=== PATIENT | male | born 1940 ===

== ENCOUNTER 2018-10-09 07:48 | Day surgery (SDC) | payer MEDICARE, OTHER ==
[~2018-10-09] VITALS: Ht 177.8 cm; Wt 98.5 kg
[~2018-10-09 07:48] MED LIST: ACET325; ASPI325; CEPH500 PO
--- NOTE | 2018-10-09 10:28 | NUR ---
10/09/18 1028 Sherley Liriano IV DISCONTINUED BY [email or web address]
== END 2018-10-09 10:10 | disposition home or self-care (01) ==
LOC: ORSCSDS 07:48
PROVIDERS: Internal Medicine Gastroenterology
PROC: 0DBK8ZX Excision of Ascending Colon, Via Natural or Artificial Opening Endoscopic, Diagnostic (ICD-10-PCS; principal; 2018-10-09 09:00)
PROC: 0DBL8ZX Excision of Transverse Colon, Via Natural or Artificial Opening Endoscopic, Diagnostic (ICD-10-PCS; principal; 2018-10-09 09:00)
PROC: 0DBM8ZX Excision of Descending Colon, Via Natural or Artificial Opening Endoscopic, Diagnostic (ICD-10-PCS; principal; 2018-10-09 09:00)
DX: Z12.11 Encounter for screening for malignant neoplasm of colon (principal); Z86.010 Personal history of colon polyps; D12.2 Benign neoplasm of ascending colon; D12.3 Benign neoplasm of transverse colon; D12.4 Benign neoplasm of descending colon; D12.5 Benign neoplasm of sigmoid colon; K57.30 Diverticulosis of large intestine without perforation or abscess without bleeding; Z87.891 Personal history of nicotine dependence; Z79.899 Other long term (current) drug therapy; Z79.82 Long term (current) use of aspirin
CPT/HCPCS: 88305; J0461; J2405; J2704; J7120

== ENCOUNTER 2020-12-03 18:16 | Emergency (ER) | payer MEDICARE, OTHER ==
[~2020-12-03] VITALS: Ht 177.8 cm; Wt 72.6 kg
[2020-12-03] MEDS ORDERED: TAMS.4ER PO (18:31)
== END 2020-12-03 18:38 | disposition home or self-care (01) ==
LOC: ER 18:16
DX: L23.7 Allergic contact dermatitis due to plants, except food (principal); Z79.82 Long term (current) use of aspirin; Z87.891 Personal history of nicotine dependence
CPT/HCPCS: 96372; 99282-25; J3301

== ENCOUNTER 2023-11-07 07:50 | Day surgery (SDC) | payer MEDICARE, OTHER ==
[~2023-11-07] VITALS: Ht 177.8 cm; Wt 90.8 kg
[~2023-11-07 07:50] MED LIST changes: +CODACE30; +Lactated Ringer's 1,000 ML IV ONE; +TAMS.4ER PO; +propofoL 50 ML IV ONE
[2023-11-07] MEDS ORDERED: FLONASE SENSIM5.9 M1 (09:02)
[2023-11-07 09:31] VITALS: BP 137/79
[2023-11-07] MEDS ORDERED: Lactated Ringer's 1,000 ML IV ONE (09:50)
== END 2023-11-07 11:00 | disposition home or self-care (01) ==
LOC: ORSCSDS 07:50
PROVIDERS: Internal Medicine Gastroenterology
PROC: 0DBP8ZX Excision of Rectum, Via Natural or Artificial Opening Endoscopic, Diagnostic (ICD-10-PCS; principal; 2023-11-07 09:45)
PROC: 0DBK8ZX Excision of Ascending Colon, Via Natural or Artificial Opening Endoscopic, Diagnostic (ICD-10-PCS; principal; 2023-11-07 09:45)
DX: Z12.11 Encounter for screening for malignant neoplasm of colon (principal); D12.2 Benign neoplasm of ascending colon; K62.1 Rectal polyp; Z86.010 Personal history of colon polyps; Z87.891 Personal history of nicotine dependence
CPT/HCPCS: 88305; J2704; J7120

== ENCOUNTER 2024-01-15 07:52 | Day surgery (SDC) | payer MEDICARE, OTHER ==
[~2024-01-15] VITALS: Ht 177.8 cm; Wt 92.5 kg
[~2024-01-15 07:52] MED LIST changes: +Balanced Salt Epinephrine Irrigation Solution 500 mL IR SCH; +FLONASE SENSIM5.9 M1; -Lactated Ringer's 1,000 ML IV ONE; +Lidocaine HCl/Pf 1% 5 ML VIAL XX SCH; +Moxifloxacin HCL 0.5 MG/0.1 ML 0.4MLSYR LEFTEYE SCH; +NS 500 ML IV ONE; +PHENYLEPHRINE\\TROPICAMIDE\\TETRACAINE OPHTHALMIC DILATING SOLN LEFTEYE PRN; +Povidone-Iodine 450 DROP/30 ML Solution LEFTEYE SCH; +Povidone-Iodine 450 DROP/30 ML Solution ONE; +Tetracaine HCl/Pf 0.5% Opth Soln 4 ml ONE; -propofoL 50 ML IV ONE
[2024-01-15] MEDS ORDERED: ACET325 PO (08:38)
[2024-01-15] MEDS ORDERED: Midazolam HCl 1MG / ML 2ML Vial ONE (09:20)
[2024-01-15 10:00] VITALS: BP 112/66
== END 2024-01-15 10:20 | disposition home or self-care (01) ==
LOC: ORSCSDS 07:52
PROVIDERS: Student in an Organized Health Care Education/Training Program
PROC: 08RK3JZ Replacement of Left Lens with Synthetic Substitute, Percutaneous Approach (ICD-10-PCS; principal; 2024-01-15 09:30)
DX: H25.813 Combined forms of age-related cataract, bilateral (principal); H35.30 Unspecified macular degeneration; J44.9 Chronic obstructive pulmonary disease, unspecified; Z79.899 Other long term (current) drug therapy
CPT/HCPCS: J2250; J7040; V2632

== ENCOUNTER 2024-01-19 13:52 | Emergency (ER) | payer MEDICARE, OTHER ==
[~2024-01-19] VITALS: Ht 177.8 cm; Wt 92.1 kg
[~2024-01-19 13:52] MED LIST changes: +ACET325 PO; -Balanced Salt Epinephrine Irrigation Solution 500 mL IR SCH; -Lidocaine HCl/Pf 1% 5 ML VIAL XX SCH; -Moxifloxacin HCL 0.5 MG/0.1 ML 0.4MLSYR LEFTEYE SCH; -NS 500 ML IV ONE; -PHENYLEPHRINE\\TROPICAMIDE\\TETRACAINE OPHTHALMIC DILATING SOLN LEFTEYE PRN; -Povidone-Iodine 450 DROP/30 ML Solution LEFTEYE SCH; -Povidone-Iodine 450 DROP/30 ML Solution ONE; -Tetracaine HCl/Pf 0.5% Opth Soln 4 ml ONE
[2024-01-19] MEDS ORDERED: Diphth,Pertuss(Acell),Tet Vac 0.5 ML VIAL IM ONE (14:00)
[2024-01-19 15:22] LABS: BASOPHILS ABSOLUTE AUTO 0.04 K/mm3 (0.00-0.23); BASOPHILS PERCENT AUTO 1 % (0-2); EOSINOPHILS ABSOLUTE AUTO 0.21 K/mm3 (0.00-0.68); EOSINOPHILS PERCENT AUTO 4 % (0-6); Hematocrit 40.2 % (37.0-53.0); Hemoglobin 13.8 g/dL (13.5-17.5); IMMATURE GRAN ABSOLUTE AUTO 0.02 K/mm3 (0.00-0.10); IMMATURE GRAN PERCENT AUTO 0 % (0-1); LYMPHOCYTES ABSOLUTE AUTO 1.39 K/mm3 (0.84-5.20); LYMPHOCYTES PERCENT AUTO 27 % (21-46); MONOCYTES ABSOLUTE AUTO 0.43 K/mm3 (0.16-1.47); MONOCYTES PERCENT AUTO 8 % (4-13); Mean Corpuscular HGB 33.7 pg (26.0-34.0); Mean Corpuscular HGB Conc 34.3 g/dL (31.5-36.5); Mean Corpuscular Volume 98 fL (80-100); Mean Platelet Volume 9.7 fL (9.1-12.4); NEUTROPHILS ABSOLUTE AUTO 3.14 K/mm3 (1.96-9.15); NEUTROPHILS PERCENT AUTO 60 % (41-73); Platelet Count 166 K/mm3 (150-400); RDW Coefficient Variation 12.5 % (11.7-14.2); RDW Standard Deviation 45.2 fL (35.1-46.3); Red Blood Cell Count 4.09 M/mm3 (4.30-5.90); White Blood Cell Count 5.23 K/mm3 (4.00-11.30)
[2024-01-19 15:43] LABS: Albumin, Blood 3.9 g/dL (3.4-5.0); Albumin/Globulin Ratio 1.2 (0.8-1.8); Bun/Creatinine Ratio 23.3 (12.0-20.0); Calcium, Blood 9.5 mg/dL (8.5-10.1); Creatinine, Blood 0.9 mg/dL (0.60-1.20); Globulin, Blood 3.2 g/dL (2.2-4.0); Total Protein, Blood 7.1 g/dL (6.4-8.2)
[2024-01-19 16:36] VITALS: BP 146/91
== END 2024-01-19 16:38 | disposition home or self-care (01) ==
LOC: ER 13:52
PROVIDERS: Physician Assistant
DX: S00.03XA Contusion of scalp, initial encounter (principal); S40.812A Abrasion of left upper arm, initial encounter; M54.2 Cervicalgia; W18.30XA Fall on same level, unspecified, initial encounter; Z79.899 Other long term (current) drug therapy; Z87.891 Personal history of nicotine dependence
CPT/HCPCS: 70450; 72125; 80053; 83735; 83880; 85025; 93005; 93010; 99284-25

== ENCOUNTER 2024-01-22 07:33 | Day surgery (SDC) | payer MEDICARE, OTHER ==
[~2024-01-22] VITALS: Ht 177.8 cm; Wt 91.8 kg
[~2024-01-22 07:33] MED LIST changes: +Balanced Salt Epinephrine Irrigation Solution 500 mL IR SCH; +Lidocaine HCl/Pf 1% 5 ML VIAL XX SCH; +Moxifloxacin HCL 0.5 MG/0.1 ML 0.4MLSYR RIGHTEYE SCH; +NS 500 ML IV ONE; +PHENYLEPHRINE\\TROPICAMIDE\\TETRACAINE OPHTHALMIC DILATING SOLN RIGHTEYE PRN; +Povidone-Iodine 450 DROP/30 ML Solution ONE; +Povidone-Iodine 450 DROP/30 ML Solution RIGHTEYE SCH; +Tetracaine HCl/Pf 0.5% Opth Soln 4 ml ONE
[2024-01-22] MEDS ORDERED: NS 500 ML IV ONE (08:35)
--- NOTE | 2024-01-22 08:37 | NUR ---
01/22/24 0837 Mouna Cisneros CALL LIGHT WITHIN REACH. TETRACAINE IN RIGHT EYE AT 0830 AND PLEDGETT IN AT 0831
[2024-01-22] MEDS ORDERED: Midazolam HCl 1MG / ML 2ML Vial ONE (08:39)
[2024-01-22] MEDS ORDERED: FentaNYL Citrate 50 MCG/ML 2 ML Injection ONE (08:39)
--- NOTE | 2024-01-22 10:52 | NUR ---
01/22/24 1052 Gonzalo Mello PT STATES ABRASION ON BACK OF HEAD WAS FROM PREVIOUS FALL.
[2024-01-22 10:55] VITALS: BP 134/69
== END 2024-01-22 09:48 | disposition home or self-care (01) ==
LOC: ORSCSDS 07:33
PROVIDERS: Student in an Organized Health Care Education/Training Program
PROC: 08RJ3JZ Replacement of Right Lens with Synthetic Substitute, Percutaneous Approach (ICD-10-PCS; principal; 2024-01-22 09:30)
DX: H25.811 Combined forms of age-related cataract, right eye (principal); H35.30 Unspecified macular degeneration; Z96.1 Presence of intraocular lens; J44.9 Chronic obstructive pulmonary disease, unspecified; Z87.891 Personal history of nicotine dependence; Z79.899 Other long term (current) drug therapy
CPT/HCPCS: J2250; J3010; J7040; V2632